=== PATIENT | female | born 1995 | race Caucasian/White ===

== ENCOUNTER 2017-09-21 18:23 | Emergency (ER) | payer MEDICAID ==
[2017-09-21 18:40] VITALS: TEMP 97.9
--- NOTE | 2017-09-21 19:36 | EDPHY ---
H & P Time Seen by Provider: 09/21/17 18:32 HPI/ROS: CHIEF COMPLAINT: Left shoulder injury HISTORY OF PRESENT ILLNESS: 22-year-old female presents to the emergency department with injury to her left shoulder. The patient states 2 days ago her 2-year-old was pulling on her left shoulder and now she has ongoing pain. She is left-hand dominant. She has pain especially with range of motion. She feels that the pain is getting worse. She recently moved to [place] does not have a primary care provider. ROS: Denies numbness or tingling in her fingers, pain in her left wrist or elbow. Past Medical/Surgical History: Chronic back pain Social History: Recently moved to [place] from [place] Smoking Status: Current every day smoker Physical Exam: No apparent distress. Examination of the left shoulder reveals no deformity. She has normal sensation to light touch with normal 2 point discrimination. Strong radial pulse at the left wrist. She has pain especially with internal rotation. She has limited flexion and extension of her left shoulder secondary to severe pain. She also has severe pain even just with mild palpation to the anterior posterior aspect of her left shoulder. She has full extension of her left elbow. She has supination. She has normal strength. Full range of motion of the right upper extremity and lower extremities bilaterally Constitutional: Initial Vital Signs Temperature (C) 36.6 C 09/21/17 18:35 Heart Rate 94 09/21/17 18:35 Respiratory Rate 16 09/21/17 18:35 Blood Pressure 117/76 09/21/17 18:35 O2 Sat (%) 98 09/21/17 18:35 O2 Delivery Mode Room Air Allergies/Adverse Reactions: melatonin Allergy (Verified 09/21/17 18:37) Home Medications: Medication Instructions Recorded Cyclobenzaprine [Flexeril 10 MG 10 mg PO 09/21/17 (*)] MDM/Departure - MDM Imaging Results: X-rays of the left shoulder reveal no fractures. This is reviewed by myself the PAC system. Radiology interpretation to follow. Imaging: I viewed and interpreted images myself Procedures: Patient was placed in a sling and examined post application in good placement with normal NURSERY ATTENDANT. - Depart Disposition: Home, Routine, Self-Care Clinical Impression: Sprain of left shoulder Qualifiers: Encounter type: initial encounter Shoulder sprain type: unspecified sprain Qualified Code(s): S43.402A - Unspecified sprain of left shoulder joint, initial encounter Instructions: Shoulder Sprain (ED) Additional Instructions: Sling for comfort and support. Ibuprofen 600 mg every 8 hr as needed for pain. Follow up with orthopedic surgeon later this week or early the following week to recheck. Return to the emergency department if he developed numbness or tingling in your fingers, feelings of weakness in your left upper extremity, or if you feel worse in any way. Referrals: Mario Ellison MD [Medical Doctor] - 5-7 days, call for appt. (Orthopedic surgeon on-call)
[2017-09-21 19:53] VITALS: BP 114/68; PULSE 82; RESP 18; O2SAT 95
== END 2017-09-21 19:52 | disposition home or self-care (01) ==
DX: S43.402A Unspecified sprain of left shoulder joint, initial encounter (principal); F17.200 Nicotine dependence, unspecified, uncomplicated; X50.9XXA Other and unspecified overexertion or strenuous movements or postures, initial encounter; Y93.89 Activity, other specified
CPT/HCPCS: A4565

== ENCOUNTER 2018-01-22 09:43 | Emergency (ER) | payer MEDICAID ==
--- NOTE | 2018-01-22 10:12 | EDPHY ---
H & P Stated Complaint: back pain Time Seen by Provider: 01/22/18 09:56 HPI/ROS: Chief Complaint: Back pain HPI: 22-year-old woman strain her back 4 days ago when lifting her 4-year-old child. She has had left-sided back pain since that time. She saw her primary care physician to give her indomethacin and cyclobenzaprine which she has been taking. She was also instructed to rest her back is been resting. However when she gets 7 moved around she has significant pain. No new numbness or weakness. No urinary difficulties. No falls or traumatic injuries. ROS: 10 point Review of Systems is negative except as noted in the HPI. PMH: Depression Social History: Positive smoking Family History: non-contributory Physical Exam: Gen: Awake, Alert, No Distress HEENT: Nose: no rhinorrhea Eyes: PERRLA, EOMI Mouth: Moist mucosa Neck: Supple, no JVD Back: no CVA tenderness, no midline tenderness, moderate right upper lumbar paraspinal tenderness and spasm Ext: no edema, non-tender Skin: no rash Neuro: CN II-XII intact, Sensation grossly intact, Strength 5/5 in bilateral upper and lower extremities, she has 2+ deep tendon reflexes in patella tendons , toes are downgoing - Personal History LMP (Females 10-55): 1-7 Days Ago Current Tetanus/Diphtheria Vaccine: Yes Current Tetanus Diphtheria and Acellular Pertussis (TDAP): Yes - Medical/Surgical History Hx Asthma: Yes Hx Chronic Respiratory Disease: No Hx Diabetes: No Hx Cardiac Disease: No Hx Renal Disease: No Hx Cirrhosis: No Hx Alcoholism: No Hx HIV/AIDS: No Hx Splenectomy or Spleen Trauma: No Other PMH: chronic back pain, scoliosis, anxiety, bipolar, asthma - Social History Smoking Status: Current every day smoker Constitutional: Initial Vital Signs Temperature (C) 37 C 01/22/18 09:48 Heart Rate 73 01/22/18 09:48 Respiratory Rate 16 01/22/18 09:48 Blood Pressure 110/59 L 01/22/18 09:48 O2 Sat (%) 94 01/22/18 09:48 O2 Delivery Mode Room Air Allergies/Adverse Reactions: melatonin Allergy (Verified 01/22/18 09:46) Home Medications: Medication Instructions Recorded Cyclobenzaprine [Flexeril 10 MG 10 mg PO 09/21/17 (*)] Abilify 01/22/18 Gabapentin 01/22/18 Indomethacin 01/22/18 Prazosin HCl 01/22/18 traZODone 01/22/18 Medical Decision Making ED Course/Re-evaluation: 22-year-old with musculoskeletal back pain. I think that her back pain is not improving because she has been resting and the muscle relaxers have been making her tired so she is sleeping. She is having significant spasm within activity. I have explained to her that multiple studies have showed that skeletal muscle relaxers do not work. Anti-inflammatories and ambulation are the most important main stays of treating musculoskeletal back pain. Will apply a Lidoderm patch as well. I have also provided her with back pain instructions. Patient does not have any red flags for acute neurologic process. Departure - Departure Disposition: Home, Routine, Self-Care Clinical Impression: Lumbar back pain Condition: Good Instructions: Low Back Strain (ED), Lower Back Exercises (ED), Core Strengthening Exercises (ED) Additional Instructions: Take the indomethacin as prescribed by her doctor. You may also take acetaminophen, 1000 mg every 6 hours. Replace the Lidoderm patch every 24 hr. These are available [id number]. Make sure to remain active. Did do not lay in bed or sit in a chair for long periods. It is important to remain active and keep your back moving in order to improve. Please see the attached back exercise instructions. Follow up with primary care physician in about a week if symptoms are not improving. Referrals: NONE *PRIMARY CARE P,. [Primary Care Provider] - As per Instructions
[2018-01-22] MEDS ORDERED: LIDOCAINE 4%/MENTHOL 1% PATCH TD ONE (10:14)
[2018-01-22 10:23] VITALS: BP 122/78
== END 2018-01-22 10:23 | disposition home or self-care (01) ==
DX: M54.5 Low back pain (principal); J45.909 Unspecified asthma, uncomplicated; F17.200 Nicotine dependence, unspecified, uncomplicated

== ENCOUNTER 2018-04-15 09:40 | Emergency (ER) | payer MEDICAID ==
[2018-04-15 10:31] LABS: PLATELET COUNT 190 10^3/uL (150-400)
[2018-04-15] MEDS ORDERED: NS 1,000 ML IV ONE ×2 (12:11)
--- NOTE | 2018-04-15 12:15 | EDPHY ---
H & P Stated Complaint: C/O n/v, dizziness, headaches, fatigue/insomnia; sxs~1 mo - Personal History LMP (Females 10-55): IUD In Place Current Tetanus Diphtheria and Acellular Pertussis (TDAP): Yes - Medical/Surgical History Hx Asthma: Yes Hx Chronic Respiratory Disease: No Hx Diabetes: No Hx Cardiac Disease: No Hx Renal Disease: No Hx Cirrhosis: No Hx Alcoholism: No Hx HIV/AIDS: No Hx Splenectomy or Spleen Trauma: No Other PMH: chronic back pain, scoliosis, anxiety, bipolar, asthma - Social History Smoking Status: Current every day smoker Time Seen by Provider: 04/15/18 11:47 HPI/ROS: CHIEF COMPLAINT: Nausea of vomiting times several weeks HISTORY OF PRESENT ILLNESS: 22-year-old female with no history of abdominal surgeries, history of daily marijuana use, history of intermittent heavy alcohol use, complaining of several weeks of intermittent, recurrent nausea, vomiting, lightheadedness, fatigue, unexpected weight loss. She tried to follow up with PCP but was unable to get in to a timely appointment therefore comes to the ER. Currently asymptomatic. No abdominal pain. No fever no chills. No chest pain. No dyspnea. No back or flank pain. No urinary abnormality. PRIMARY CARE PROVIDER: REVIEW OF SYSTEMS: A ten point review of systems was performed and is negative with the exception of the items mentioned in the HPI PAST MEDICAL & SURGICAL HISTORY: No history of abdominal surgeries. SOCIAL HISTORY: Daily marijuana. Intermittent heavy alcohol use. Works at [employer] PHYSICAL EXAM (Prior to examination, patient consented to physical exam, hands were washed and my usual and customary physical exam procedures followed) 1) GENERAL: Well-developed, well-nourished, alert and oriented. Appears to be in no acute distress. 2) HEAD: Normocephalic, atraumatic 3) HEENT: Pupils equal, round, reactive to light bilaterally. Sclera anicteric. Nasopharynx, oropharynx, clear, no lesions. Dry mucous membranes Ears bilaterally with normal tympanic membranes. 4) NECK: Full range of motion, no meningeal signs. 5) LUNGS: Clear auscultation bilaterally, no wheezes, no rhonchi, no retractions. 6) HEART: Regular rate and rhythm, no murmur, no heave, no gallop. 7) ABDOMEN: No guarding, no rebound, no focal tenderness, negative McBurney's, negative Gibson's, negative Rovsing's, negative peritoneal sign, I am unable to elicit any abdominal pain on exam 8) MUSCULOSKELETAL: Moving all extremities, no focal areas of tenderness, no obvious trauma. No peripheral edema or discoloration. 9) BACK: No CVA tenderness, no midline vertebral tenderness, no fluctuance, no step-off, no obvious trauma, no visual or palpable abnormality. 10) SKIN: No rash, no petechiae. 11) Psychiatric: Patient is oriented X 3, there is no agitation. DIFFERENTIAL DIAGNOSIS: My differential diagnosis includes, but is not limited to, acute appendicitis, acute cholecystitis, bowel obstruction, acute pancreatitis, , gastritis and urinary tract infection. The patient understands that this diagnosis is provisional and can never be 100% accurate. This is a partial list of diagnoses considered. These considerations are based on history, physical exam, past history and reassessment. (Mary Alice Godwin) Constitutional: Initial Vital Signs Temperature (C) 36.6 C 04/15/18 09:45 Heart Rate 67 04/15/18 09:45 Respiratory Rate 18 04/15/18 09:45 Blood Pressure 113/73 04/15/18 09:45 O2 Sat (%) 96 04/15/18 09:45 O2 Delivery Mode Room Air Allergies/Adverse Reactions: melatonin Allergy (Mild, Verified 04/15/18 09:44) insides felt cold Home Medications: Medication Instructions Recorded Cyclobenzaprine [Flexeril 10 MG 10 mg PO 04/15/18 (*)] Gabapentin [Neurontin 300 MG (*)] 300 mg PO HS 04/15/18 Ondansetron Odt [Zofran Odt] 4 mg PO Q4PRN PRN #10 tab 04/15/18 Pantoprazole Sodium [Protonix 40mg 40 mg PO DAILY #30 tab 04/15/18 (RX)] Medical Decision Making ED Course/Re-evaluation: Patient has been re-evaluated with serial examinations. She remains asymptomatic while in the emergency department. Suspect volume depletion subsequently IV hydration has been administered. I think that acute surgical abdominal pathology is less than likely this patient absence of subjective or objective abdominal pain complaints. She history of daily marijuana use but is adamant that this is not the etiology of her chronic intermittent vomiting. I recommended moderation marijuana as well as alcohol. At this time I do not identify indication for hospitalization or General surgery or GI consultation. She does express frustration trying to get appoint with her PCP. I am initiating PPI therapy as well as a p.r.n. prescription for Zofran. No indication for imaging at this time. She feels comfortable being discharged. All questions and concerns addressed by myself. (Mary Alice Godwin) I did not see this patient while she was in the emergency department. However her care was discussed with the PA while the patient was in the department. I agree with treatment plan and management (John Munoz) - Data Points Laboratory Results: Laboratory Results 04/15/18 10:17 04/15/18 10:17 04/15/18 04/15/18 04/15/18 12:15 10:17 10:17 WBC RBC Hgb Hct MCV MCH MCHC RDW Plt Count MPV Neut % (Auto) Lymph % (Auto) Bath % (Auto) Eos % (Auto) Baso % (Auto) Nucleat RBC Rel Count Absolute Neuts (auto) Absolute Lymphs (auto) Absolute Monos (auto) Absolute Eos (auto) Absolute Basos (auto) Absolute Nucleated RBC Immature Gran % Immature Gran # Sodium Potassium Chloride Carbon Dioxide Anion Gap BUN Creatinine Estimated GFR Glucose Calcium Total Bilirubin 1.1 mg/dL mg/dL (0.1-1.4) Conjugated Bilirubin 0.2 mg/dL mg/dL (0.0-0.5) Unconjugated Bilirubin 0.9 mg/dL mg/dL (0.0-1.1) AST 34 IU/L IU/L (14-46) ALT 35 IU/L IU/L (9-52) Alkaline Phosphatase 68 IU/L IU/L (38-126) Total Protein 7.5 g/dL g/dL (6.3-8.2) Albumin 4.3 g/dL g/dL (3.5-5.0) Lipase 33 IU/L IU/L (23-300) Beta HCG, Qual NEGATIVE Urine Color YELLOW Urine Appearance HAZY Urine pH 7.0 (5.0-7.5) Ur Specific Pelzer 1.009 (1.002-1.030) Urine Protein NEGATIVE (NEGATIVE) Urine Ketones NEGATIVE (NEGATIVE) Urine Blood NEGATIVE (NEGATIVE) Urine Nitrate NEGATIVE (NEGATIVE) Urine Bilirubin NEGATIVE (NEGATIVE) Urine Urobilinogen NEGATIVE EU EU (0.2-1.0) Ur Leukocyte Esterase 2+ H (NEGATIVE) Urine RBC NONE SEEN /hpf /hpf (0-3) Urine WBC 1-3 /hpf /hpf (0-3) Ur Epithelial Cells 2+ /lpf H /lpf (NONE-1+) Urine Mucus TRACE /lpf /lpf (NONE-1+) Urine Glucose NEGATIVE (NEGATIVE) 04/15/18 04/15/18 10:17 10:17 WBC 7.68 10^3/uL 10^3/uL (3.80-9.50) RBC 4.92 10^6/uL 10^6/uL (4.18-5.33) Hgb 15.2 g/dL g/dL (12.6-16.3) Hct 44.2 % % (38.0-47.0) MCV 89.8 fL fL (81.5-99.8) MCH 30.9 pg pg (27.9-34.1) MCHC 34.4 g/dL g/dL (32.4-36.7) RDW 12.2 % % (11.5-15.2) Plt Count 190 10^3/uL 10^3/uL (150-400) MPV 9.4 fL fL (8.7-11.7) Neut % (Auto) 68.1 % % (39.3-74.2) Lymph % (Auto) 24.5 % % (15.0-45.0) Bath % (Auto) 6.0 % % (4.5-13.0) Eos % (Auto) 0.7 % % (0.6-7.6) Baso % (Auto) 0.3 % % (0.3-1.7) Nucleat RBC Rel Count 0.0 % % (0.0-0.2) Absolute Neuts (auto) 5.24 10^3/uL 10^3/uL (1.70-6.50) Absolute Lymphs (auto) 1.88 10^3/uL 10^3/uL (1.00-3.00) Absolute Monos (auto) 0.46 10^3/uL 10^3/uL (0.30-0.80) Absolute Eos (auto) 0.05 10^3/uL 10^3/uL (0.03-0.40) Absolute Basos (auto) 0.02 10^3/uL 10^3/uL (0.02-0.10) Absolute Nucleated RBC 0.00 10^3/uL 10^3/uL (0-0.01) Immature Gran % 0.4 % % (0.0-1.1) Immature Gran # 0.03 10^3/uL 10^3/uL (0.00-0.10) Sodium 138 mEq/L mEq/L (135-145) Potassium 4.1 mEq/L mEq/L (3.3-5.0) Chloride 106 mEq/L mEq/L (97-110) Carbon Dioxide 24 mEq/l mEq/l (22-31) Anion Gap 8 mEq/L mEq/L (8-16) BUN 14 mg/dL mg/dL (7-23) Creatinine 0.5 mg/dL L mg/dL (0.6-1.0) Estimated GFR > 60 Glucose 79 mg/dL mg/dL (70-100) Calcium 9.5 mg/dL mg/dL (8.5-10.4) Total Bilirubin Conjugated Bilirubin Unconjugated Bilirubin AST ALT Alkaline Phosphatase Total Protein Albumin Lipase Beta HCG, Qual Urine Color Urine Appearance Urine pH Ur Specific Pelzer Urine Protein Urine Ketones Urine Blood Urine Nitrate Urine Bilirubin Urine Urobilinogen Ur Leukocyte Esterase Urine RBC Urine WBC Ur Epithelial Cells Urine Mucus Urine Glucose Medications Given: Discontinued Medications Sodium Chloride (Ns) 1,000 mls @ 0 mls/hr IV ONCE ONE; Wide Open PRN Reason: Protocol Stop: 04/15/18 12:12 Last Admin: 04/15/18 12:14 Dose: 1,000 mls Sodium Chloride (Ns) 1,000 mls @ 0 mls/hr IV ONCE ONE PRN Reason: Wide Open Stop: 04/15/18 12:12 Last Admin: 04/15/18 12:33 Dose: Not Given Departure - Departure Disposition: Home, Routine, Self-Care Clinical Impression: Volume depletion Vomiting Qualifiers: Vomiting type: unspecified Vomiting Intractability: non-intractable Nausea presence: with nausea Qualified Code(s): R11.2 - Nausea with vomiting, unspecified Condition: Good Instructions: Acute Nausea and Vomiting (ED) Additional Instructions: Seek immediate medical attention if you develop new or worsening symptoms, if you develop fevers, chills, inability to tolerate oral intake or any other symptoms that concerns you. Referrals: [facility],. [Clinic] - 2-3 days, call for appt. Prescriptions: Ondansetron Odt [Zofran Odt] 4 mg PO Q4PRN PRN #10 tab PRN Reason: Nausea Pantoprazole Sodium [Protonix 40mg (RX)] 40 mg PO DAILY #30 tab
[2018-04-15 13:04] VITALS: BP 92/60
== END 2018-04-15 13:03 | disposition home or self-care (01) ==
DX: R11.2 Nausea with vomiting, unspecified (principal); E86.9 Volume depletion, unspecified; F17.200 Nicotine dependence, unspecified, uncomplicated; J45.909 Unspecified asthma, uncomplicated

== ENCOUNTER 2018-11-19 17:03 | Emergency (ER) | payer MEDICAID | END 2018-11-19 18:49 | disposition home or self-care (01) ==